=== PATIENT | female | born 1960 | race Hispanic/Latino ===

== ENCOUNTER → 2017-11-24 | Outpatient (CLI) | payer OTHER ==
[~2017-11-24] MED LIST: CHOL100040 PO; GLUC100019 PO; HYDR25TA PO; LISI40TA4 PO; METF500T6 PO; MULT-68 PO; OMEG1CAP43 PO
== END | disposition home or self-care (01) ==
LOC: RAH 09:44
PROVIDERS: ATTEND Internal Medicine Pulmonary Disease
DX: Z12.31 Encounter for screening mammogram for malignant neoplasm of breast (principal)
CPT/HCPCS: 77067

== ENCOUNTER → 2019-01-29 | Outpatient (CLI) | payer OTHER ==
[~2019-01-29] MED LIST changes: +METF-444 PO; -METF500T6 PO
== END | disposition home or self-care (01) ==
LOC: RAH 11:48
PROVIDERS: ATTEND Family Medicine
DX: Z12.31 Encounter for screening mammogram for malignant neoplasm of breast (principal)
CPT/HCPCS: 77067

== ENCOUNTER 2022-05-21 09:15 | Emergency (ER) | payer OTHER ==
[~2022-05-21] VITALS: Ht 160 cm; Wt 97.1 kg
[~2022-05-21 09:15] MED LIST changes: -LISI40TA4 PO; +LISI40TA9 PO
[2022-05-21] MEDS ORDERED: LACTATED RINGERS 1000ML 1,000 ML IV ONE (09:30)
[2022-05-21] MEDS ORDERED: PANTOPRAZOLE 40 MG/VIAL IVP ONE (09:30)
[2022-05-21 09:39] LABS: BASOPHILS % (AUTO) 0.3 % (0.0-5.0); EOSINOPHILS % (AUTO) 0.8 % (0.0-8.0); HEMATOCRIT 39.4 % (36-48); LYMPHOCYTES % (AUTO) 25.9 % (21.0-51.0); MEAN CORPUSCULAR HEMOGLOBIN 27.2 pg (27.0-33.0); MEAN CORPUSCULAR HGB CONC 32.7 g/dL (32.0-36.0); MEAN CORPUSCULAR VOLUME 83.1 fL (79-99); MONOCYTES % (AUTO) 8.2 % (3.0-13.0); NEUTROPHILS % (AUTO) 64.1 % (40.0-77.0); PLATELET COUNT (AUTO) 364 K/uL (130-400); RED BLOOD CELL COUNT(AUTO) 4.74 MIL/uL (4.00-5.50); RED CELL DISTRIBUTION WIDTH 13.8 % (11.0-15.5); WHITE BLOOD COUNT (AUTO) 9.2 K/uL (4.8-10.8)
[2022-05-21 09:48] LABS: CREATININE 0.7 mg/dL (0.5-1.5); POTASSIUM 4.2 mmol/L (3.5-5.1)
[2022-05-21 09:52] LABS: ALBUMIN 3.6 g/dL (3.5-5.0); TOTAL PROTEIN, SERUM 7.5 g/dL (6.0-8.3)
[2022-05-21] MEDS ORDERED: KETOROLAC 30MG VIAL (30MG/ML) ONE (10:34)
[2022-05-21] MEDS ORDERED: KETOROLAC 30MG VIAL (30MG/ML) IVP STA (10:34)
[2022-05-21 12:38] LABS: APPEARANCE,URINE CLEAR (CLEAR); BILIRUBIN,URINE NEGATIVE (NEGATIVE); COLOR,URINE YELLOW (YELLOW); GLUCOSE, URINE (UA) >=1000 mg/dL (NEGATIVE); KETONES,URINE NEGATIVE (NEGATIVE); LEUKOCYTE ESTERASE ,URINE TRACE (NEGATIVE); NITRATE,URINE NEGATIVE (NEGATIVE); OCCULT BLOOD,URINE NEGATIVE (NEGATIVE); PROTEIN,URINE NEGATIVE (NEGATIVE); UROBILINOGEN,URINE 0.2 mg/dL (0.2-1.0)
[2022-05-21 12:48] LABS: BACTERIA,URINE Few /HPF (None Seen); RBC,URINE None Seen /HPF (0-1); SQUAMOUS EPITHELIAL CELL,UR 0-2 /HPF (0-2)
[2022-05-21] MEDS ORDERED: PANT40TA55 PO (13:55)
[2022-05-21 14:10] VITALS: BP 127/56
== END 2022-05-21 14:17 | disposition home or self-care (01) ==
LOC: EDH 09:15
DX: K29.70 Gastritis, unspecified, without bleeding (principal); E11.9 Type 2 diabetes mellitus without complications; I10 Essential (primary) hypertension; Z79.84 Long term (current) use of oral hypoglycemic drugs; Z79.899 Other long term (current) drug therapy; Z88.0 Allergy status to penicillin; Z90.49 Acquired absence of other specified parts of digestive tract
CPT/HCPCS: 99285; 74176; 96374; 96361; 96375; 82150; 82550; 84484; 80053; 83690; 85025; 81001; 36415; 93005; J7120; J1885; C9113

== ENCOUNTER → 2023-05-21 | Outpatient (CLI) | payer OTHER ==
[~2023-05-21] MED LIST changes: +FISH1CAP17 PO; -OMEG1CAP43 PO; +PANT40TA55 PO
== END | disposition home or self-care (01) ==
LOC: OIH 11:10
PROVIDERS: ATTEND Family Medicine
DX: Z13.6 Encounter for screening for cardiovascular disorders (principal)
CPT/HCPCS: 75571

== ENCOUNTER → 2023-09-03 | Outpatient (CLI) | payer BC | END | disposition home or self-care (01) | LOC: RAH 14:44 | PROVIDERS: ATTEND Nurse Practitioner Adult Health | DX: N95.1 Menopausal and female climacteric states (principal) | CPT/HCPCS: 77080 ==

== ENCOUNTER → 2023-09-10 | Outpatient (CLI) | payer BC | END | disposition home or self-care (01) | LOC: RAH 07:44 | PROVIDERS: ATTEND Nurse Practitioner Adult Health | DX: Z12.31 Encounter for screening mammogram for malignant neoplasm of breast (principal) | CPT/HCPCS: 77067 ==

== ENCOUNTER 2024-03-15 10:39 | Emergency (ER) | payer BC ==
[~2024-03-15] VITALS: Ht 160 cm; Wt 81.6 kg
[2024-03-15] MEDS ORDERED: PRED10TA23 PO (11:55)
[2024-03-15] MEDS ORDERED: CLIN-141 PO (11:55)
[2024-03-15] MEDS: IBUPROFEN 600 MG TABLET PO ONE (12:00)
[2024-03-15 12:51] VITALS: BP 142/58; PULSE 85; RESP 16; O2SAT 99
== END 2024-03-15 12:56 | disposition home or self-care (01) ==
LOC: EDH 10:39
DX: R68.84 Jaw pain (principal); H66.92 Otitis media, unspecified, left ear; I89.1 Lymphangitis; I10 Essential (primary) hypertension; E11.9 Type 2 diabetes mellitus without complications; Z79.84 Long term (current) use of oral hypoglycemic drugs; Z79.899 Other long term (current) drug therapy; Z90.710 Acquired absence of both cervix and uterus; Z98.890 Other specified postprocedural states; Z90.49 Acquired absence of other specified parts of digestive tract; Z88.8 Allergy status to other drugs, medicaments and biological substances
CPT/HCPCS: 76536